=== PATIENT | male | born 1960 | race Caucasian/White ===

== ENCOUNTER → 2018-01-02 20:19 | Outpatient (CLI) | payer OTHER, SELFPAY | PROVIDERS: Family Provider Family Medicine; PCP Family Medicine; Visit Provider Family Medicine | DX: G47.33 Obstructive sleep apnea (adult) (pediatric) (principal) | CPT/HCPCS: 95810 ==

== ENCOUNTER → 2019-09-26 12:14 | Outpatient (CLI) | payer OTHER, SELFPAY ==
[2016-12-14 07:37] VITALS: BMI 27.7
[2019-09-26 14:38] LABS: ALB/GLOB Ratio 0.8 RATIO (0.9-2.4); AST(SGOT) 19 U/L (15-37); Alanine Aminotransfer ALT/SGPT 36 U/L (16-61); Albumin, Serum 3.4 g/dL (3.2-5.0); Alkaline Phosphatase 57 U/L (45-117); Anion Gap 5 (5-15); BUN 18 mg/dL (7-18); BUN/Creat Ratio 20.3 RATIO (10-20); Calcium,Total 9.1 mg/dL (8.5-10.1); Chloride 106 mmol/L (98-107); Creatinine, Serum 0.89 mg/dL (0.70-1.30); EST Glomerular Filtration Rate 93 mL/min (>60); Est Glom Filt Rate - Afr Amer 113 mL/min (>60); Globulin 4.5 g/dL (2.2-4.2); Glucose 87 mg/dL (74-106); Potassium 3.8 mmol/L (3.5-5.1); Protein, Total 7.9 g/dL (6.4-8.2); Sodium Level 138 mmol/L (136-145); Uric Acid 5.3 mg/dL (3.5-7.2)
== END ==
PROVIDERS: Nurse Practitioner Family; Family Provider Family Medicine; PCP Family Medicine; Referring Provider Family Medicine; Visit Provider Family Medicine
DX: M10.9 Gout, unspecified (principal)
CPT/HCPCS: 36415; 80053; 84550

== ENCOUNTER → 2020-09-22 15:36 | Outpatient (CLI) | payer OTHER, SELFPAY ==
--- NOTE | 2020-09-22 16:03 | CT_ITS ---
STUDY: CT PELVIS WITHOUT CONTRAST REASON FOR EXAM: Male, 60 years old. Dislocation of left hip prosthesis, left hip pain x several weeks, worse x 4 days, unable to bear weight, initial replacement 7 years ago. MAR reconstructions included. RADIATION DOSAGE (If Supplied By Facility): CTDIvol = ( 14.96 ) mGy, DLP = ( 556.82 ) mGycm TECHNIQUE: Transaxial imaging of the pelvis was performed with oral contrast, and without intravenous administration of contrast material. In the lateral aspect Individualized dose optimization techniques were used for this CT. COMPARISON: None. FINDINGS: Abnormal appearance of the left hip arthroplasty. The acetabular cup is in markedly suboptimal positioning and orientation. The acetabular cup is directed cranial and the inferior edge intensity stem of the femoral prosthesis obviously resulting in decreased range of motion. Axial images also show that the acetabular cup is markedly oriented anterior. Although currently there is no evidence for dislocation, the orientation of the acetabular cup clearly makes this location very likely. No fractures are seen. No gross loosening of the femoral stem. There is evidence for chronic remodeling of the left [place] acetabulum including widening. Moderate to severe osteoarthritic changes are seen of the right hip also including a 2.6 cm subchondral cyst of the right anterior acetabular pillar. Normal urinary bladder. Enlarged prostate gland. Normal visualized small intestine. Normal visualized colon. There is no pelvic fluid. There is no pelvic mass lesion or lymphadenopathy. Normal visualized pelvic arteries. Normal abdominal wall. There are diffuse degenerative changes of the visualized lumbar spine. CT/Pelvis without IV Contrast IMPRESSION: No acute fracture or definite current dislocation. However markedly suboptimal, rotated, orientation of the left acetabular prosthesis. Electronically Signed: Aashish Alcantar MD at 16:59 EST , Service support ,
[2020-09-22 17:27] LABS: Absolute Lymphocyte Count 1.94 X10^3/uL (0.83-4.51); Absolute Neutrophil Count 5.5 X10^3/uL (2.0-7.7); Basophil# 0.02 X10^3/uL; Basophil% 0.2 % (0-1); Eosinophil# 0.29 X10^3/uL; Eosinophils% 3.4 % (0-5); Hematocrit 52.1 % (40-54); Hemoglobin 17.7 g/dL (13.0-16.5); Lymphocyte # 1.94 X10^3/ul (4.0); Mean Corpuscular Hgb 31.6 pg (27.0-32.0); Monocyte# 0.66 X10^3/uL; Monocyte% 7.8 % (0-10); NRBC Flagged by Analyzer 0 % (0-5); Neutrophil % 65.1 % (47-70); Platelet Count 230 K/mm3 (150-450); RBC Distribution Width CV 11.7 % (11.6-14.6); RBC Distribution Width SD 40.1 fl (35.1-43.9); White Blood Count 8.5 K/mm3 (4.4-11.0)
[2020-09-22 18:19] LABS: CRP < 2.90 mg/L (0.0-3.0)
[2020-09-22 18:22] LABS: Erythrocyte Sedimentation Rate 8 mm/hr (0-20)
== END ==
PROVIDERS: PCP Family Medicine; Visit Provider Physician Assistant
DX: T84.021A Dislocation of internal left hip prosthesis, initial encounter (principal); Z96.642 Presence of left artificial hip joint
CPT/HCPCS: 36415; 72192; 85025; 85652; 86140

== ENCOUNTER 2020-10-06 11:41 | Inpatient (IN) | payer OTHER, SELFPAY ==
[2020-10-01 13:06] LABS: Magnesium 2.2 mg/dL (1.6-2.6)
[2020-10-01 13:38] LABS: Anion Gap 5 (5-15); BUN 14 mg/dL (7-18); BUN/Creat Ratio 16.1 RATIO (10-20); Calcium,Total 9.1 mg/dL (8.5-10.1); Chloride 106 mmol/L (98-107); Creatinine, Serum 0.87 mg/dL (0.70-1.30); EST Glomerular Filtration Rate 95 mL/min (>60); Est Glom Filt Rate - Afr Amer 115 mL/min (>60); Glucose 78 mg/dL (74-106); Potassium 3.9 mmol/L (3.5-5.1); Sodium Level 139 mmol/L (136-145)
[2020-10-06] VITALS (11 sets, daily range): BP systolic 117–145; BP diastolic 72–97; PULSE 55–72; RESP 16–20; TEMP 36.1–36.8; O2SAT 92–100; BMI 27.3
--- NOTE | 2020-10-06 | SYN_PTH ---
PATIENT: SHANNAN ANGLIN LOC: MS3 U#:[id number] AGE/SX: 60/M ROOM: MS318 RE10/06/[address]: Dr. Breezy Painting MD : 1960 BED: 1 DIS: 10/07/2020 SPEC #: [id number] RECD: 10/07/20 07:37 STATUS: TRISHA REQ #: [id number] NAVEEN: 10/06/20 00:[address]: Breezy Painting DEPT: SURGICAL PATHOLOGY RECD BY: Aleksander Worthy ENTERED: 10/07/20 09:18 SP TYPE: SYNOVIUM OTHR DR: Dr. Marcell Alexandre MD Tissues: Synovial tissue of joint, NOS Procedures: Surgery Specimen Level IV HEADER OPERATION: ERAS, total hip anterior revision PRE-OP DIAGNOSIS: Mechanical complication of internal left hip prosthesis TISSUE SUBMITTED: Synovium membrane left hip MICROSCOPIC DIAGNOSIS Synovium left hip, total hip revision: Fragments of dense fibroconnective tissue, synovial tissue with focal necrosis, fibrinous exudation and reactive changes. PAOLO:adeola 10/08/20 COMMENT Significant lymphocytic infiltrates are not seen. Case has been reviewed in consultation with Dr. Strickland who concurs with the above diagnosis. IDC:AM MICROSCOPIC DESCRIPTION Slides are reviewed. GROSS DESCRIPTION Received in fixative is one container labeled with the patient's name and designated synovium left hip. The specimen consists of an indurated fragment of de oliveira-white soft tissue measuring 3 x 2 x 1.7 cm. Serial sections reveal granular cut surfaces. Stratigraphy Teacher sections are submitted in two cassettes. / AM:adeola 10/07/20 TC:5 CPT: 92476
[2020-10-06] MEDS: Lactated Ringers 1,000 ML 999 ML IV ×2 (12:35→13:30)
[2020-10-06] MEDS: Acetaminophen 500 MG Tablet 1000 MG PO ×2 (12:40→21:42)
[2020-10-06] MEDS: Scopolamine 1mg/72hr Patch 1 PATCH TD (12:41)
[2020-10-06] MEDS: Gabapentin 600 MG Tablet PO (12:41)
[2020-10-06] MEDS: Lactated Ringers 1,000 ML 125 ML IV ×2 (13:30→22:31)
[2020-10-06 13:40] LABS: Bedside Glucose 68 mg/dL (70-110)
[2020-10-06] MEDS: Cefazolin 2 GM in 0.9% Normal Saline 100 ML IV (14:05)
[2020-10-06] MEDS: dexAMETHasone 10 MG/ML Vial IV (14:30)
--- NOTE | 2020-10-06 14:42 | NURSING ---
RNCM Note: Went to patient bedside to complete initial assessment, patient still in procedure. RNCM to f/u to complete assessment and care coordination needs. Zane Hernandes, STEPHANIECM
--- NOTE | 2020-10-06 15:35 | RAD_ITS ---
STUDY: X-RAY - PELVIS AND LEFT HIP REASON FOR EXAM: Male, 60 years old. Left total hip. TECHNIQUE: 7 intraoperative views of the pelvis and hip. COMPARISON: CT abdomen and pelvis, 09/22/2020. FINDINGS: The initial image demonstrates dislocation of the left hip. The normal articular surface of the femoral component is not present. The 2nd-7th images demonstrate normal prosthetic femoral head which articulates normally with the acetabulum. There is no evidence of fracture or dislocation. Please refer to the operative report for further details. RAD/Hip 1 view with Pelvis IMPRESSION: Left hip arthroplasty in the OR. Electronically Signed: Clarence Smiley DO at 17:46 EST Tel [phone], Service support ,
[2020-10-06 15:52] LABS: Body Fluid Mononuclear WBC # 2.995 10^3/uL; Body Fluid Mononuclear WBC % 90.4 %; Body Fluid Polynuclear WBC # 0.316 10^3/uL; Body Fluid Polynuclear WBC % 9.6 %; Body Fluid Total Cells Counted 3.503 10^3/ul; White Blood Count/Body Fluid 3.311 10^3/uL
--- NOTE | 2020-10-06 17:08 | PCM.OPRPT ---
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 We noted ALVAL appearing synovial tissues intraoperatively which were sent to pathology. chocolate production machine operator: Ladarius Gonzalez Type of Anesthesia:: Spinal Anesthesiologist: Judah Rdz Special Medications: 2 g Ancef, 1 g TXA at incision, 1 g TXA closure, 10 mg Decadron, joint cocktail (5 mg Duramorph, 30 mL of 0.5% Ropivicaine, 1000 units of epinephrine, 30 mg of Toradol). Antibiotics were redosed after 2 hours from incision Specimen's removed: Specimens were sent to pathology and microbiology. Estimated Blood Loss (mL): 450 Fluids Replaced: 2 L crystalloid, 125 mL Cell Saver Description of Procedure: Components used: 1. Lesley trident 2 acetabular shell size 72 mm 2. Hurst X3 polyethylene alpha code F 3. Lesley Biolox delta 36 millimeters +7.5 mm femoral head Brief history operative indications: 60 yo F who had previous total hip replacement in 2012. Patient developed acute pain in the left hip. He was noted to have a failed acetabular component. Preoperative work-up for infection was negative. Patient was unable to bear weight. Metal ions are currently pending. We elected to discuss revision total hip replacement with the patient with risks and benefits including but not limited to blood loss, DVTs, PEs, neurovascular damage, dislocation, general risks of anesthesia including loss of life. Patient demonstrated an understanding medical clearance is obtained the patient was consented for surgery. Procedure: On the date of procedure the patient's L hip was marked in the preoperative area. Patient was then taken back to the operating room where anesthesia assumed control of the C-spine and airway and administered anesthetic. Patient was transferred to the operating table and placed in the supine position. The hips were placed at the break of the bed and a sacral bump was placed. The L lower extremity was then prepped out in a sterile fashion using chlorhexidine while the surgeon scrubbed. The PA was vital in the positioning of the patient. Upon reentering the room the L lower extremity was draped in the standard orthopedic fashion and the incision was marked. A timeout was called and everyone agreed upon the side, the site, the procedure be performed, antibody given, and patient's identity. At this time incision was made through skin, subcutaneous tissue, and fat down to fascia. The fascia was then incised and the TFL was retracted laterally. A retractor was placed on the lateral border of the femoral neck. Attention was directed to the inferior portion of the approach and all crossing vessels were identified and appropriately coagulated. A retractor was then placed on the medial portion of the femoral neck. The anterior capsule was then cleared of all soft tissue and then H shaped capsulotomy was made. This we were able to identify the acetabular implant in the femoral neck. We dissected down around the femoral neck into the complete synovectomy. Upon entering the joint there was significant amount of synovial fluid. This fluid was sent for culture Gram stain intraoperatively came back negative. We also sent it for cell count which we will examine. More significantly the synovium had a green the ALVAL type appearance. Patient was sent for pathology and culture some of the synovium was sent for culture. After we completed the synovectomy the hip was dislocated. Bone tamp was used to separate the Marion taper removing the cobalt-chromium head from the trunnion. Trunnion was inspected. There was nonsignificant amount of trunnion gnosis appreciated. At this time we are able to talk the femoral component posterior to the hip where had previously dislocated and retracted out of the way. Attention was then turned toward the acetabulum where the soft tissues were appropriately retracted and the acetabulum was visualized. Once we are able to visualize it we could clearly see that it was loose. It was removed using a Annabel. Once this was done we carefully inspected the bone. This bone posteriorly was significantly deficient. However we had good central bone anterior bone superior and inferior bone. At this time we sequentially reamed to 72 mm. At this time the wound was copiously irrigated out with 6 L of normal saline. We then trialed a 72 mm cup which is appropriate. At this time the multihole 72 mm cup was opened. While we did this we use a 70 mm reamer to pack the reamings and additional allograft into the bone defect. The 72 mm cup was then impacted into place. The position of the acetabular cup was then verified under live fluoroscopy. After we verify the position 2 screws were placed orthogonally into the safe zone. X-rays were again used to verify placement of the screws. Once this was done the acetabular liner was impacted into place and the locking mechanism was verified. Attention was then turned to the femur. Where we were able to expose the proximal femoral component. At this time a neutral component been removed. Based on patient's previous leg length discrepancy after last surgery we elected to use live fluoroscopy to even his leg lengths. Ultimately a +7.5 mm neck length was selected. Once we trialed we were able to use live fluoroscopy to verify appropriate positioning. Based on preoperative radiographs we match the offset and leg lengths. The trial components were then dislocated the proximal femur was again exposed and the components were removed from the wound. The final components were verified and opened. The wound was copiously irrigated out with normal saline. The acetabulum was checked for any residual debris. The final components were placed and impacted. Traction and internal rotation were again used to reduce the hip. After adequate reduction the hip remained stable with appropriate leg lengths. The final components were once again checked with live fluoroscopy and were found to be satisfactory. The wound was then copiously irrigated with normal saline once more, and hemostasis was obtained. Closure was then done using #1 Vicryl runner to close the fascia. A 2-0 vicryl interuppted sutures were used to close the subcutaneous skin. A 3-0 Monocryl and Steri-Strips were used for final skin closure. A Silverlon dressing was placed. Patient was awakened by anesthesia and transferred to the [facility]. Patient was then transferred to the PACU for recovery. Postoperative plan: Patient will get 24 hours postop antibiotics. Patient will get in-house physical therapy and will be toe-touch weightbearing for 2 weeks followed by partial weightbearing for 4 weeks with plans to weight-bear as tolerated at 6 weeks postoperatively. This is due to the tenuous bone noted intraoperatively. Patient will follow up in office in 2 weeks for a wound check and x-rays. Aspirin 81 mg twice daily. patient will be on doxycycline for 1 week as we follow cultures. During the course of the procedure the physician optical laboratory technician (PE) played a vital role. Their intimate knowledge of my steps in the procedure aided in safe and expedient completion of the procedure. The PE played a vital rolls in positioning particularly in obtaining the appropriate positioning of the sacral bump. The PE was also vital in the retraction of soft tissues during the exposure and especially the femoral work as this is a vital part of the procedure to prevent complications and fractures. The PE was also vital and protecting soft tissues during times of bony cuts and reaming. He also played a vital role in closure with my direct supervision. The PE was also important during reduction and dislocation of the joint and trials intraoperatively. Grafts/Implants Used: 15 mm crushed bone allograft - Complications No intraoperative complications - Admit VTE Documentation VTE Present on Admission: No VTE Mechan Device Prophylaxis: SCD's, Thigh High MAYE Hose VTE Pharm Prophylaxis ordered?: Yes
--- NOTE | 2020-10-06 17:26 | RAD_ITS ---
STUDY: X-RAY - PELVIS AND LEFT HIP REASON FOR EXAM: Male, 60 years old. Postop. TECHNIQUE: 2 views of the pelvis and hip. COMPARISON: None. FINDINGS: There is a non-specific bowel gas pattern. Normal visualized soft tissue structures. Normal bilateral iliac wings, sacroiliac joints and visualized sacrum. Normal bilateral superior and inferior pubic rami. Normal pubic symphysis. Normal bilateral ischial tuberosities. There is moderate degenerative changes of the right hip. Left total hip arthroplasty. The prosthetic components are intact and articulate normally with each other. No fracture or loosening from the underlying bone. Air is seen in the surrounding soft tissues. RAD/Hip Min 2 Views (Portable) IMPRESSION: Status post left total hip arthroplasty. Electronically Signed: Clarence Smiley DO at 17:44 EST Tel [phone], Service support ,
[2020-10-06 21:18] LABS: Lymphocytes 1 %; Macrophages 2 %; Monocytes 12 %; Neutrophil (Segs) 85 %; Source- Body Fluid OTHER
[2020-10-06 21:19] LABS: Appearance/Body Fluid CLOUDY; Auto B Fluid Analyzer BKGD Ct COUNTS W/IN LIMITS (W/IN LIMITS); Body Fluid QC Type(s) BF2Q; Color/Body Fluid SLIGHTLY PINK
[2020-10-06] MEDS: Senna/Docusate Sodium 1 Tablet 2 TABLET PO (21:42)
[2020-10-06] MEDS: Cefazolin 1 GM/50 ML BAG IV (21:42)
[2020-10-06] MEDS: Doxycycline 100 MG CAPSULE PO (21:42)
--- NOTE | 2020-10-06 23:06 | PCS.PANDOC ---
PANDEMIC DOCUMENTATION INITIATED: Date: Time:
[2020-10-07 03:07] VITALS: BP 112/68; PULSE 71; RESP 16; TEMP 36.8; O2SAT 94
[2020-10-07 06:09] VITALS: BP 116/63; PULSE 74; RESP 20; TEMP 36.8; O2SAT 94
[2020-10-07] MEDS: Cefazolin 1 GM/50 ML BAG IV (06:18)
[2020-10-07] MEDS: Acetaminophen 500 MG Tablet 1000 MG PO ×2 (06:18→13:06)
[2020-10-07] MEDS: Lactated Ringers 1,000 ML 125 ML IV (07:01)
[2020-10-07 07:28] LABS: Mean Corp Hgb Conc 35.6 g/dL (32-36); Mean Corpuscular Hgb 32.5 pg (27.0-32.0); Mean Corpuscular Volume 91.5 fL (80-94); Mean Platelet Vol. 9.9 fl (6.2-12.0); Platelet Count 207 K/mm3 (150-450); RBC Distribution Width CV 11.4 % (11.6-14.6); RBC Distribution Width SD 38.2 fl (35.1-43.9); Red Blood Count 4.92 M/mm3 (4.6-6.2); White Blood Count 14.5 K/mm3 (4.4-11.0)
[2020-10-07 07:50] VITALS: BP 109/67; PULSE 63; RESP 18; TEMP 36.4; O2SAT 96
[2020-10-07] MEDS: Aspirin 81 MG TAB.CHEW PO (07:57)
[2020-10-07] MEDS: Ensure Surgery 237 ML LIQUID PO ×2 (07:59→11:17)
[2020-10-07 08:04] LABS: Anion Gap 7 (5-15); BUN 14 mg/dL (7-18); BUN/Creat Ratio 14.5 RATIO (10-20); Calcium,Total 8.9 mg/dL (8.5-10.1); Chloride 107 mmol/L (98-107); Creatinine, Serum 0.96 mg/dL (0.70-1.30); EST Glomerular Filtration Rate 84 mL/min (>60); Est Glom Filt Rate - Afr Amer 102 mL/min (>60); Estimated Creatinine Clearance 92.48 ml/min; Glucose 119 mg/dL (74-106); Sodium Level 141 mmol/L (136-145)
--- NOTE | 2020-10-07 09:16 | PN.ORTHO_ITS ---
Subjective: The patient was sitting in bedside chair upon examination. Patient denies any chest pain, shortness of breath, dizziness, lightheadedness, nausea or vomiting, or calf pain. Pain is controlled on medications. No adverse overnight events. Overall patient is doing very well postoperatively. Objective: Vital signs stable and afebrile. Patient is able to plantarflex and dorsiflex actively. Sensation is intact to light touch to saphenous, sural, superficial and deep peroneal, and tibial distribution. Dressing is clean dry and intact. Negative Homans bilaterally, negative signs and symptoms of DVT. - Physical Exam Vitals/I&O's: Vital Signs Temp Pulse Resp BP Pulse Ox 97.5 F L 63 18 109/67 96 10/07/20 07:50 10/07/20 07:50 10/07/20 07:50 10/07/20 07:50 10/07/20 07:50 Oxygen Flow Rate (L/min) 6 Oxygen Delivery Method Room Air Weight: 93.9 kg Body Mass Index (BMI) 27.3 Intake and Output for Last 24 Hours 10/05/20 10/06/20 10/07/20 23:59 23:59 23:59 Intake Total 3485.5 / 3485.5 1172.92 / 1172.92 Output Total 1300 / 1300 Balance 3485.5 / 2885.5 -127.08 / -127.08 General: Alert, Oriented x3, Cooperative, No apparent distress Microbiology Past 72 Hours 10/06/20 Unknown Fluid - Other Gram Stain - Preliminary 10/05/20 10:22 Interface Orders SARS-CoV-2 Antigen (Rapid) - Final Laboratory Results 10/06/20 12:19: POC Glucose 68 L 10/06/20 : Fluid Source OTHER, Fluid Color SLIGHTLY PINK, Fluid Appearance CLOUDY, Fluid WBC 3.311, Fluid RBC 0.010, Fluid Tot Cell Count 3.503, Fld Polynuclear WBCs # 0.316, Fld Polynuclear WBCs % 9.6, Fluid Mononuclear WBCs 2.995, Fld Mononuclear WBCs % 90.4, Fluid Neutrophils 85, Fluid Lymphocytes 1, Fluid Monocytes 12, Fluid Macrophages 2, Fl Pathologist Comment May follow, Fluid Comment 2 SEE COMMENT 10/07/20 06:46: WBC 14.5 H, RBC 4.92, Hgb 16.0, Hct 45.0, MCV 91.5, MCH 32.5 H, MCHC 35.6, RDW Std Deviation 38.2, RDW Coeff of Bryant 11.4 L, Plt Count 207, MPV 9.9 10/07/20 06:46: Sodium 141, Potassium 4.0, Chloride 107, Carbon Dioxide 27.0, Anion Gap 7, BUN 14, Creatinine 0.96, Estim Creat Clear Calc 92.48, Est GFR (MDRD) Af Amer 102, Est GFR (MDRD) Non-Af 84, BUN/Creatinine Ratio 14.5, Glucose 119 H, Calcium 8.9 Current Medications Acetaminophen (Acetaminophen 500 Mg Tablet) 1,000 mg PO Q8 [facility] Last Admin: 10/07/20 06:18 Dose: 1,000 mg Documented by: Aspirin ([facility]in 81 Mg Tab.Chew) [facility] Last Admin: 10/07/20 07:57 Dose: 81 mg Documented by: Doxycycline Monohydrate (Doxycycline 100 Mg Capsule) 100 mg PO BID [facility] Last Admin: 10/06/20 21:42 Dose: 100 mg Documented by: Enteral Nutritional Formula (Ensure Surgery 237 Ml Liquid) 237 ml PO TIDCM [facility] Last Admin: 10/07/20 07:59 Dose: 237 ml Documented by: Famotidine (Famotidine 20 Mg Tablet) 20 mg PO DAILY [facility] Lactated Ringer's () 1,000 mls @ 125 mls/hr IV .Q8H [facility] Last Infusion: 10/07/20 08:00 Dose: Infused Documented by: Sodium Chloride () 250 mls @ 15 mls/hr IV .[id number] PRN PRN Reason: Saline Flush Sodium Chloride () 250 mls @ 15 mls/hr IV .[id number] PRN PRN Reason: Additional IVPB Infusion Ketorolac Tromethamine (Ketorolac 15 Mg/Ml Vial) 15 mg IV Q6H PRN PRN PRN Reason: Pain Score 1-3 Stop: 10/08/20 17:19 Meloxicam (Meloxicam 7.5 Mg Tablet) 7.5 mg PO BID [facility] Morphine Sulfate (Morphine 2 Mg/Ml Syringe) 2 - 4 mg IV Q2H PRN PRN PRN Reason: Pain Score 4-10 Ondansetron HCl (Ondansetron 4 Mg/2 Ml Vial) 4 mg IV Q8H PRN PRN PRN Reason: NAUSEA Oxycodone HCl (Oxycodone 5 Mg Tablet) 5 - 10 mg PO Q4H PRN PRN PRN Reason: Pain Score 4-10 Promethazine HCl (Promethazine 25 Mg/Ml Syringe) 12.5 mg IM Q6H PRN PRN; Protocol PRN Reason: NAUSEA/VOMITING Senna/Docusate Sodium (Senna/Docusate Sodium 1 Tablet) 2 tablet PO BID [facility] Last Admin: 10/06/20 21:42 Dose: 2 tablet Documented by: Sodium Chloride (0.9% Saline Lock 10 Ml Syringe) 10 - 40 ml IV UD PRN PRN Reason: SALINE FLUSH Medical Necessity - Tobacco Use Smoking Status: Never smoker Assessment/Plan All Active Problems Atypical chest pain (Acute) Bilateral pulmonary embolism (Acute) 1. S/P revision left hip replacement acetabular and femoral component POD #1 2. Continue Pain Medications: Tylenol, meloxicam, oxycodone as needed 3. DVT Prophylaxis: Take 81 mg aspirin twice daily for 4 weeks postoperatively for DVT prophylaxis 4. PT/OT: Patient will be toe-touch weightbearing for 2 weeks postoperatively followed by partial weightbearing for 4 weeks with plans to weight-bear as tolerated at 6 weeks postoperatively. 5. H & H: 16.0/45.0, asymptomatic 6. Reactive leukocytosis: Currently 14.5, afebrile. Patient did receive Decadron intraoperatively 7. Continue antibiotics while following cultures: Currently they are pending. Will be on doxycycline for 1 week postoperatively 8. Encouraged Incentive Spirometry 9. Disposition: Orthopedically stable, plan will be for discharge home today as long as patient can tolerate physical therapy with the restrictions. Prescriptions will be E scribed to [facility]. He will follow- up per postop instructions. Case management will be involved with setting up physical therapy whether home health for 2 weeks versus outpatient formal physical therapy. I have reviewed the [place] Automated Rx Reporting System (OARRS) report for this patient for refill pattern and other prescriber involvement as part of the appropriate surveillance for the provision of acute and chronic controlled medications. The report was requested and reviewed on the date of this entry and was considered in the prescribing process.
--- NOTE | 2020-10-07 09:24 | DCINST_ITS ---
Discharge Diet: No Restrictions Discharge Activity: May Not Drive - while taking narcotic pain medications. May shower in (days): 1 - Dressing must be intact to skin. Turn dressing away from water. Do not submerge underwater for 6 weeks postoperatively. Weight Bearing Status: Toe touch weight bearing - Left lower extremity Elevate: Operative Extremity Additional Activity Instructions:: Wear elastic stockings for 2 weeks. DO NOT use alcohol with narcotic pain medication. DO NOT make important decisions while taking narcotic medication. If you have problems with taking your medication (rash, itching, nausea, etc.) call the office at once. Call your doctor if your incision/area has: Increased Pain/ Swelling, Increased Redness, Foul Smelling Discharge Call your doctor if you observe: Fever of 101 or Higher Remove Dressing in (days):: 4 - Okay to remove dressing on October 11, 2020 Additional Instructions: Follow [facility] Post-op Instructions. Once postoperative dressing has been removed only use gentle soap and water over the incision. Do not use any ointments, Neosporin, salves, alcohol pads over the incision for 6 weeks postoperatively. Do not submerge underwater for 6 weeks postoperatively. Allergies/Adverse Reactions: Allergies Sulfa (Sulfonamide Antibiotics) Adverse Reaction (Verified 10/06/20 11:57) Unknown Medications to take at Discharge Multivitamins,Therapeutic [Multivitamin] 1 tablet PO DAILY 09/30/13 Fluconazole [Diflucan] 150 mg PO DAILY 09/28/20 Acetaminophen [Tylenol] 1,000 mg PO Q8 #100 tab 10/07/20 Aspirin [Aspirin, Baby] 81 mg PO BIDCM tab 10/07/20 Doxycycline 100 mg PO BID #14 cap 10/07/20 Famotidine [Pepcid] 20 mg PO DAILY #30 tab 10/07/20 Meloxicam [Mobic] 7.5 mg PO BID #60 tab 10/07/20 Oxycodone [Oxyir] 5 - 10 mg PO Q4H PRN PRN 4 Days #48 tab 10/07/20 Senna/Docusate Sodium [Senokot-S] 2 tab PO BID #10 tab 10/07/20 The following prescriptions were given: Doxycycline 100 mg PO BID #14 cap Transmission Status: Pending to [facility] Meloxicam [Mobic] 7.5 mg PO BID #60 tab Transmission Status: Pending to [facility] Oxycodone [Oxyir] 5 - 10 mg PO Q4H PRN PRN 4 Days #48 tab PRN Reason: Pain Score 4-10 Prescription Printed Famotidine [Pepcid] 20 mg PO DAILY #30 tab Transmission Status: Pending to [facility] Senna/Docusate Sodium [Senokot-S] 2 tab PO BID #10 tab Transmission Status: Pending to [facility] Acetaminophen [Tylenol] 1,000 mg PO Q8 #100 tab Transmission Status: Pending to [facility] Primary Care Physician: Marcell Alexandre MD [Primary Care Provider] - Test Results: Test results from this visit will be discussed in further detail at your follow- up appointment, if applicable. Please Follow Up With: physical therapy Please Follow Up With: Ladarius Gonzalez PA-C When: 10/20/20 @ 9:45 am
[2020-10-07] MEDS: oxyCODONE 5 MG Tablet PO ×2 (09:29→13:56)
[2020-10-07] MEDS: Senna/Docusate Sodium 1 Tablet 2 TABLET PO (09:30)
[2020-10-07] MEDS: Famotidine 20 MG Tablet PO (09:30)
[2020-10-07] MEDS: Doxycycline 100 MG CAPSULE PO (09:30)
--- NOTE | 2020-10-07 11:25 | CASEMGMT ---
STEPHANIE DIAZ Face to Face with patient for initial transition planning/care coordination assessment. STEPHANIE DIAZ introduced self and role at [facility]. Patient lying in bed, alert and oriented. Patient willing to participate in assessment and is able to answer all questions appropriately. Care providers, pharmacy, and demographics verified. Patient wishes to discharge home and would like outpatient therapy at [facility]. STEPHANIE DIAZ call [facility] and made appt for 10/12 at 0930. STEPHANIE DIAZ updated the patient. Patient states he has no further needs or concerns at this time. CM to follow for discharge planning needs that may arise. PCP: Baldomero Specialists: [facility] Pharmacy: [facility] Insurance: [employer] [facility] Prescription Benefit: yes Living Will/HPOA: yes, Denice Serrano LNOK: Living Arrangements: patient lives with in a 2 story home with bed and bath on the first floor. Patient states he was independent at home prior to surgery Transportation: DME/HHC: Patient states that he has shower chair, hip kit, walker, raised toilet, and cpap at home. Patient scheduled for outpatient therapy with [facility] Disposition Plan: Patient to discharge home with outpatient therapy family support and follow-up plans in place. Mindy QUISPE, RN, CM
[2020-10-07 13:05] VITALS: BP 115/68; PULSE 73; RESP 18; TEMP 36.4; O2SAT 92
[2020-10-07 13:48] LABS: Pathologist Comment/Body Fluid Reviewed
== END 2020-10-07 14:20 | disposition home or self-care (01) | DRG 468 ==
LOC: ACINP 11:42 → MS3 17:24
PROVIDERS: Anesthesiology; Admitting Provider Specialist; PCP Family Medicine; Referring Provider Specialist; Visit Provider Specialist
PROC: 0SRB04Z Replacement of Left Hip Joint with Ceramic on Polyethylene Synthetic Substitute, Open Approach (ICD-10-PCS; principal; 2020-10-06 13:05)
DX: T84.031A Mechanical loosening of internal left hip prosthetic joint, initial encounter (principal); T84.091A Other mechanical complication of internal left hip prosthesis, initial encounter; Y83.8 Other surgical procedures as the cause of abnormal reaction of the patient, or of later complication, without mention of misadventure at the time of the procedure; Y92.9 Unspecified place or not applicable; M21.70 Unequal limb length (acquired), unspecified site; G47.30 Sleep apnea, unspecified; Z79.82 Long term (current) use of aspirin; Z79.899 Other long term (current) drug therapy; Z86.711 Personal history of pulmonary embolism; Z86.72 Personal history of thrombophlebitis; Z96.642 Presence of left artificial hip joint; Z96.652 Presence of left artificial knee joint
CPT/HCPCS: 36415; 73501; 73502; 76000; 80048; 82962; 83735; 85027; 87015; 87070; 87075; 87081; 87102; 87116; 87176; 87205; 87206; 87426; 88305; 89050; 97161; 97166; 97530; 99251; C1713; C1776; C9803; J7120; G0463